=== PATIENT | male | born 1960 | race Caucasian/White ===

== ENCOUNTER 2021-09-15 17:04 | Emergency (ER) | payer BC, OTHER ==
[~2021-09-15] VITALS: Ht 172.7 cm; Wt 108.0 kg
[2021-09-15] MEDS ORDERED: ONDANSETRON HCL INJ 2MG/ML 2ML 2 MG/ML VIAL IV PRN (17:30)
[2021-09-15] MEDS ORDERED: Morphine 4mg Syringe 4 MG/ML INJ IV PRN (17:30)
[2021-09-15 18:07] LABS: BASOPHILS # (AUTO) 0.1 (0.0-0.1); BASOPHILS % 0.8 % (0.0-1.0); EOSINOPHILS # (AUTO) 0.2 (0.0-0.4); EOSINOPHILS % 2.7 % (0.0-6.0); HEMATOCRIT 43.5 % (38.2-49.6); HEMOGLOBIN 14.7 g/dL (14.0-18.0); LYMPHOCYTES # (AUTO) 2.2 (1.0-3.2); LYMPHOCYTES % 24.6 % (18.0-39.1); MEAN CORPUSCULAR HEMOGLOBIN 29.4 pg (28-32); MEAN CORPUSCULAR HGB CONC 33.8 g/dL (31-35); MONOCYTES # (AUTO) 0.9 (0.2-0.8); MONOCYTES % 10.6 % (4.4-11.3); NEUTROPHILS # (AUTO) 5.3 (2.1-6.9); NEUTROPHILS % 59.3 % (38.7-80.0); PLATELET COUNT 421 x10e3/uL (140-360); RED CELL DISTRIBUTION WIDTH 12.5 % (11.7-14.4)
[2021-09-15 18:23] LABS: ALBUMIN 3.5 g/dL (3.5-5.0); ALBUMIN/GLOBULIN RATIO 0.9 (0.8-2.0); ANION GAP 16.7 mmol/L (8-16); CALCIUM 9.2 mg/dL (8.4-10.2); CREATININE, SERUM 1.05 mg/dL (0.72-1.25); POTASSIUM 3.7 mmol/L (3.5-5.1)
[2021-09-15 19:04] VITALS: BP 134/84
[2021-09-15 19:07] LABS: CLARITY,URINE SL CLOUDY (CLEAR); COLOR,URINE YELLOW (YELLOW)
[2021-09-15 19:08] LABS: KETONES,URINE NEGATIVE (NEGATIVE); LEUKOCYTE ESTERASE ,URINE TRACE (NEGATIVE); NITRITE,URINE NEGATIVE (NEGATIVE); PROTEIN,URINE DIPSTICK 2+ (NEGATIVE); URINE UROBILINOGEN 0.2 mg/dL (0.2 - 1)
[2021-09-15 19:18] LABS: BACTERIA,URINE MODERATE /HPF
== END 2021-09-15 19:05 | disposition home or self-care (01) ==
LOC: ER 17:25
DX: R10.32 Left lower quadrant pain (principal); N20.0 Calculus of kidney; N12 Tubulo-interstitial nephritis, not specified as acute or chronic; E11.65 Type 2 diabetes mellitus with hyperglycemia; I10 Essential (primary) hypertension; E78.5 Hyperlipidemia, unspecified; E03.9 Hypothyroidism, unspecified; K21.9 Gastro-esophageal reflux disease without esophagitis; Z86.73 Personal history of transient ischemic attack (TIA), and cerebral infarction without residual deficits
CPT/HCPCS: 36415; 80053; 81001; 85025; 87040; 87086; 87186; 99284; J2543

== ENCOUNTER 2022-07-20 14:42 | Emergency (ER) | payer BC ==
[~2022-07-20] VITALS: Ht 172.7 cm; Wt 108.0 kg
[2022-07-20] MEDS ORDERED: ASPIRIN 81 MG CHEW TAB PO ONE (14:45)
[2022-07-20] MEDS: LABETALOL HCL 5 MG/ML 20ML VIAL IV STA ×2 (15:06→15:20)
[2022-07-20 15:11] LABS: BASOPHILS # (AUTO) 0.1 (0.0-0.1); BASOPHILS % 0.6 % (0.0-1.0); EOSINOPHILS # (AUTO) 0.3 (0.0-0.4); EOSINOPHILS % 3.3 % (0.0-6.0); HEMATOCRIT 42.9 % (38.2-49.6); HEMOGLOBIN 14.6 g/dL (14.0-18.0); LYMPHOCYTES # (AUTO) 2.2 (1.0-3.2); LYMPHOCYTES % 21.5 % (18.0-39.1); MEAN CORPUSCULAR VOLUME 88.1 fL (81-99); MONOCYTES # (AUTO) 0.9 (0.2-0.8); MONOCYTES % 8.7 % (4.4-11.3); NEUTROPHILS # (AUTO) 6.8 (2.1-6.9); NEUTROPHILS % 65.2 % (38.7-80.0); PLATELET COUNT 312 x10e3/uL (140-360); RED BLOOD COUNT 4.87 x10e6/uL (4.3-5.7); RED CELL DISTRIBUTION WIDTH 12.3 % (11.7-14.4)
[2022-07-20 15:26] LABS: INR 0.91; PROTHROMBIN TIME 12.8 seconds (11.9-14.5)
[2022-07-20 15:28] LABS: ALANINE AMINOTRANSFERASE 57 IU/L (0-55); ALBUMIN 3.8 g/dL (3.5-5.0); ALBUMIN/GLOBULIN RATIO 1.1 (0.8-2.0); ALKALINE PHOSPHATASE 69 IU/L (40-150); ANION GAP 15.5 mmol/L (8-16); BLOOD UREA NITROGEN 19 mg/dL (7-26); BUN/CREATININE RATIO 19 (6-25); CALCIUM 9.2 mg/dL (8.4-10.2); CARBON DIOXIDE 27 mmol/L (22-29); CHLORIDE 98 mmol/L (98-107); CREATINE KINASE 320 IU/L (30-200); CREATININE, SERUM 0.98 mg/dL (0.72-1.25); GLUCOSE 243 mg/dL (74-118); POTASSIUM 4.5 mmol/L (3.5-5.1); SODIUM 136 mmol/L (136-145)
[2022-07-20] MEDS ORDERED: CLONIDINE HCL0.1 MG PO (16:31)
[2022-07-20 16:58] VITALS: BP 138/83
== END 2022-07-20 17:00 | disposition home or self-care (01) ==
LOC: ER 14:54
DX: I16.0 Hypertensive urgency (principal); H53.8 Other visual disturbances; E11.65 Type 2 diabetes mellitus with hyperglycemia; I10 Essential (primary) hypertension; E78.5 Hyperlipidemia, unspecified; E03.9 Hypothyroidism, unspecified; K21.9 Gastro-esophageal reflux disease without esophagitis; Z86.73 Personal history of transient ischemic attack (TIA), and cerebral infarction without residual deficits
CPT/HCPCS: 36415; 70450; 71045; 80053; 82550; 82553; 84484; 85025; 85610; 85730; 93005; 99284; J3490

== ENCOUNTER 2024-07-01 18:59 | Emergency (ER) | payer BC ==
[~2024-07-01 18:59] MED LIST: CLONIDINE HCL0.1 MG PO
[2024-07-01] MEDS ORDERED: PRAVASTATIN SOD40 MG PO (22:03)
[2024-07-01] MEDS ORDERED: PIOGLITAZONE HC30 MG PO (22:03)
[2024-07-01] MEDS ORDERED: OLMESARTAN MEDO40 MG PO (22:03)
[2024-07-01] MEDS ORDERED: LEVOTHYROXINE50 MCG PO (22:03)
[2024-07-01] MEDS ORDERED: AMLODIPINE BESYL5 MG PO (22:04)
[2024-07-02] MEDS ORDERED: LINZESS290 MCG (10:19)
== END 2024-07-01 19:20 | disposition short-term general hospital (02) ==
LOC: ER 19:06
DX: I10 Essential (primary) hypertension (principal)

== ENCOUNTER 2024-07-01 19:27 | Inpatient (IN) | payer BC ==
[~2024-07-01] VITALS: Ht 172.7 cm; Wt 108.9 kg
[~2024-07-01 19:27] MED LIST changes: +SEVOFLURANE INHAL SOLN 250 ML PEN BTL ONE
[2024-07-01 20:57] VITALS: BP 119/69; PULSE 86; RESP 18; TEMP 97.9; O2SAT 97
[2024-07-01 21:06] LABS: BASOPHILS % 0.3 % (0.0-1.0); EOSINOPHILS # (AUTO) 0.1 (0.0-0.4); EOSINOPHILS % 0.8 % (0.0-6.0); HEMATOCRIT 42.2 % (38.2-49.6); HEMOGLOBIN 14.3 g/dL (14.0-18.0); LYMPHOCYTES # (AUTO) 1.6 (1.0-3.2); MEAN CORPUSCULAR HEMOGLOBIN 29.5 pg (28-32); MEAN CORPUSCULAR HGB CONC 33.9 g/dL (31-35); MONOCYTES # (AUTO) 1.5 (0.2-0.8); MONOCYTES % 12.8 % (4.4-11.3); NEUTROPHILS # (AUTO) 8.7 (2.1-6.9); NEUTROPHILS % 72.4 % (38.7-80.0); PLATELET COUNT 305 x10e3/uL (140-360); RED BLOOD COUNT 4.85 x10e6/uL (4.3-5.7); RED CELL DISTRIBUTION WIDTH 13.5 % (11.7-14.4); WHITE BLOOD COUNT 11.95 x10e3/uL (4.8-10.8)
[2024-07-01 21:18] LABS: CREATININE, SERUM 2.93 mg/dL (0.72-1.25)
[2024-07-01] MEDS: SODIUM CHLORIDE 0.9% 1000ML 1,000 ML IV SCH (21:18)
[2024-07-01 21:23] LABS: BILIRUBIN,URINE NEGATIVE (NEGATIVE); CLARITY,URINE CLEAR (CLEAR); COLOR,URINE YELLOW (YELLOW); GLUCOSE, URINE NEGATIVE (NEGATIVE); KETONES,URINE NEGATIVE (NEGATIVE); LEUKOCYTE ESTERASE ,URINE NEGATIVE (NEGATIVE); NITRITE,URINE NEGATIVE (NEGATIVE); PH,URINE 5.5 (5 - 7); PROTEIN,URINE DIPSTICK 2+ (NEGATIVE); URINE UROBILINOGEN 0.2 mg/dL (0.2 - 1)
[2024-07-01 21:31] VITALS: BP 119/69; PULSE 86; RESP 18; TEMP 97.9; O2SAT 97
[2024-07-01 21:45] VITALS: BP 119/69; PULSE 86; RESP 18; TEMP 97.9; O2SAT 97
[2024-07-01 21:55] LABS: RBC,URINE 0-5 /HPF (0-5)
[2024-07-01 21:56] LABS: BACTERIA,URINE MANY /HPF; EPITHELIAL CELLS,URINE FEW /LPF
[2024-07-01] MEDS ORDERED: OLMESARTAN MEDO40 MG PO (22:03)
[2024-07-01] MEDS ORDERED: PRAVASTATIN SOD40 MG PO (22:03)
[2024-07-01] MEDS ORDERED: LEVOTHYROXINE50 MCG PO (22:03)
[2024-07-01] MEDS ORDERED: PIOGLITAZONE HC30 MG PO (22:03)
[2024-07-01] MEDS ORDERED: AMLODIPINE BESYL5 MG PO (22:04)
[2024-07-02] VITALS (8 sets, daily range): BP systolic 107–132; BP diastolic 69–80; PULSE 83–91; RESP 16–22; TEMP 97.8–99; O2SAT 94–100
[2024-07-02] MEDS: Morphine 2mg Syringe 2 MG/ML SYR IV PRN (02:25)
[2024-07-02 05:57] LABS: BASOPHILS % 0.3 % (0.0-1.0); EOSINOPHILS # (AUTO) 0.1 (0.0-0.4); EOSINOPHILS % 0.5 % (0.0-6.0); HEMATOCRIT 33.9 % (38.2-49.6); HEMOGLOBIN 11.7 g/dL (14.0-18.0); LYMPHOCYTES # (AUTO) 1.1 (1.0-3.2); LYMPHOCYTES % 9.9 % (18.0-39.1); MEAN CORPUSCULAR HEMOGLOBIN 29.4 pg (28-32); MEAN CORPUSCULAR HGB CONC 34.5 g/dL (31-35); MEAN CORPUSCULAR VOLUME 85.2 fL (81-99); MONOCYTES # (AUTO) 1.5 (0.2-0.8); MONOCYTES % 13.9 % (4.4-11.3); NEUTROPHILS # (AUTO) 8.2 (2.1-6.9); NEUTROPHILS % 73.9 % (38.7-80.0); PLATELET COUNT 236 x10e3/uL (140-360); RED BLOOD COUNT 3.98 x10e6/uL (4.3-5.7); RED CELL DISTRIBUTION WIDTH 13.4 % (11.7-14.4); WHITE BLOOD COUNT 11.03 x10e3/uL (4.8-10.8)
[2024-07-02 06:27] LABS: ANION GAP 16.8 mmol/L (8-16); CALCIUM 7.9 mg/dL (8.4-10.2); CREATININE, SERUM 2.51 mg/dL (0.72-1.25); POTASSIUM 3.8 mmol/L (3.5-5.1)
[2024-07-02] MEDS ORDERED: LINZESS290 MCG (10:19)
[2024-07-02] MEDS ORDERED: TRANEXAMIC ACID 1,000 MG/10 ML ML ONE (12:11)
[2024-07-02] MEDS ORDERED: DEXTROSE 50% SYRINGE 50 ML IV PRN (18:45)
[2024-07-02] MEDS: PRAVASTATIN 20 MG TAB PO SCH (20:14)
[2024-07-02] MEDS: INSULIN LISPRO 100 UNIT/1 ML 3ML VIAL SQ SCH (21:00)
[2024-07-03] VITALS (9 sets, daily range): BP systolic 109–133; BP diastolic 66–79; PULSE 77–88; RESP 17–21; TEMP 97.5–100.6; O2SAT 95–100
[2024-07-03] MEDS: LEVOTHYROXINE SODIUM 50 MCG TAB PO SCH (05:09)
[2024-07-03 06:05] LABS: BASOPHILS % 0.2 % (0.0-1.0); EOSINOPHILS # (AUTO) 0.1 (0.0-0.4); EOSINOPHILS % 0.6 % (0.0-6.0); HEMATOCRIT 30.6 % (38.2-49.6); HEMOGLOBIN 10.6 g/dL (14.0-18.0); LYMPHOCYTES # (AUTO) 1.3 (1.0-3.2); LYMPHOCYTES % 13.1 % (18.0-39.1); MEAN CORPUSCULAR HEMOGLOBIN 29.7 pg (28-32); MEAN CORPUSCULAR HGB CONC 34.6 g/dL (31-35); MEAN CORPUSCULAR VOLUME 85.7 fL (81-99); MONOCYTES # (AUTO) 1.6 (0.2-0.8); MONOCYTES % 15.7 % (4.4-11.3); NEUTROPHILS # (AUTO) 6.8 (2.1-6.9); NEUTROPHILS % 67.7 % (38.7-80.0); PLATELET COUNT 236 x10e3/uL (140-360); RED BLOOD COUNT 3.57 x10e6/uL (4.3-5.7); RED CELL DISTRIBUTION WIDTH 13.7 % (11.7-14.4); WHITE BLOOD COUNT 10.05 x10e3/uL (4.8-10.8)
[2024-07-03 06:34] LABS: ANION GAP 13.1 mmol/L (8-16); CALCIUM 7.5 mg/dL (8.4-10.2); CREATININE, SERUM 2.42 mg/dL (0.72-1.25); POTASSIUM 4.1 mmol/L (3.5-5.1)
[2024-07-03] MEDS: AMLODIPINE BESYLATE 5 MG TAB PO SCH (09:00)
[2024-07-03] MEDS ORDERED: LIDOCAINE HCL 2% LOCAL INJ 5 ML SDV VIAL INJ ONE (16:51)
[2024-07-03] MEDS ORDERED: FENTANYL CITRATE/PF 100MCG/2 ML INJ ONE (16:51)
[2024-07-03] MEDS ORDERED: PROPOFOL IV EMULSION 10 MG/ML 20 ML VIAL ONE (16:53)
[2024-07-03] MEDS ORDERED: PHENAZOPYRIDINE HCL 100 MG TAB PO PRN (18:15)
[2024-07-03] MEDS ORDERED: ACETAMINOPHEN/CODEINE 300MG - 30MG TAB PO PRN (18:15)
[2024-07-04] VITALS (7 sets, daily range): BP systolic 109–130; BP diastolic 76–92; PULSE 72–88; RESP 18–21; TEMP 95.7–97.9; O2SAT 97–100
[2024-07-04] MEDS: CITRATE OF MAGNESIA 300ML BOTTLE PO STA (05:55)
[2024-07-04 05:57] LABS: BASOPHILS % 0.2 % (0.0-1.0); HEMATOCRIT 33.2 % (38.2-49.6); HEMOGLOBIN 11.1 g/dL (14.0-18.0); LYMPHOCYTES # (AUTO) 0.7 (1.0-3.2); LYMPHOCYTES % 7.7 % (18.0-39.1); MEAN CORPUSCULAR HEMOGLOBIN 29.2 pg (28-32); MEAN CORPUSCULAR HGB CONC 33.4 g/dL (31-35); MEAN CORPUSCULAR VOLUME 87.4 fL (81-99); MONOCYTES # (AUTO) 0.5 (0.2-0.8); MONOCYTES % 5.6 % (4.4-11.3); NEUTROPHILS # (AUTO) 7.5 (2.1-6.9); NEUTROPHILS % 82.6 % (38.7-80.0); PLATELET COUNT 320 x10e3/uL (140-360); RED CELL DISTRIBUTION WIDTH 14.2 % (11.7-14.4); WHITE BLOOD COUNT 9.05 x10e3/uL (4.8-10.8)
[2024-07-04 06:29] LABS: ANION GAP 13.8 mmol/L (8-16); CALCIUM 7.7 mg/dL (8.4-10.2); CREATININE, SERUM 1.64 mg/dL (0.72-1.25); POTASSIUM 4.8 mmol/L (3.5-5.1)
[2024-07-04] MEDS: CITRATE OF MAGNESIA 300ML BOTTLE ONE ×2 (09:02)
[2024-07-04] MEDS: SOLIFENACIN SUCCINATE 5 MG TAB PO SCH (09:07)
[2024-07-04] MEDS: INSULIN GLARGINE 100 UNITS/ML VIAL SQ SCH (20:38)
[2024-07-05] VITALS: BP 136/85; PULSE 72; RESP 18; TEMP 97.2; O2SAT 100
[2024-07-05 05:28] VITALS: BP 138/85; PULSE 74; RESP 18; TEMP 97.3; O2SAT 98
[2024-07-05 07:03] LABS: ANION GAP 12.9 mmol/L (8-16); CALCIUM 7.9 mg/dL (8.4-10.2); CREATININE, SERUM 1.27 mg/dL (0.72-1.25); POTASSIUM 4.9 mmol/L (3.5-5.1)
[2024-07-05 07:13] LABS: CALCIUM 7.3 mg/dL (8.6-10.2)
[2024-07-05 08:30] VITALS: BP 142/87; PULSE 70; RESP 19; TEMP 97.5; O2SAT 100
[2024-07-05 09:38] VITALS: BP 142/87; PULSE 70; RESP 19; TEMP 97.5; O2SAT 100
[2024-07-05] MEDS ORDERED: PROPOFOL IV EMULSION 10 MG/ML 20 ML VIAL ONE (12:10)
[2024-07-05] MEDS ORDERED: LIDOCAINE HCL 2% LOCAL INJ 5 ML SDV VIAL INJ ONE (12:10)
[2024-07-05] MEDS ORDERED: FENTANYL CITRATE/PF 100MCG/2 ML INJ ONE (12:14)
[2024-07-05] MEDS ORDERED: EPHEDRINE SULFATE INJ 50 MG/ML VIAL ONE (12:25)
[2024-07-05] MEDS ORDERED: ACETAMINOPHEN 1000 MG/100 ML 100 ML IV ONE (12:30)
[2024-07-05] MEDS ORDERED: SEVOFLURANE INHAL SOLN 250 ML PEN BTL ONE (12:30)
[2024-07-05] MEDS ORDERED: FAMOTIDINE 20 MG/2 ML VIAL IV ONE (12:35)
[2024-07-05] MEDS ORDERED: ONDANSETRON HCL INJ 2MG/ML 2ML 2 MG/ML VIAL ONE (12:35)
[2024-07-05 13:29] VITALS: BP 125/85; PULSE 69; RESP 20; TEMP 97.9; O2SAT 98
[2024-07-05 16:32] VITALS: BP 139/99; PULSE 73; RESP 20; TEMP 97.8; O2SAT 98
== END 2024-07-05 19:28 | disposition home or self-care (01) | DRG 660 ==
LOC: MED/SURG2 19:27
PROVIDERS: ADMIT Family Medicine; ATTEND Family Medicine
PROC: BT141ZZ Fluoroscopy of Kidneys, Ureters and Bladder using Low Osmolar Contrast (ICD-10-PCS; 2024-07-03)
PROC: 0T778DZ Dilation of Left Ureter with Intraluminal Device, Via Natural or Artificial Opening Endoscopic (ICD-10-PCS; principal; 2024-07-03 17:48)
PROC: 0TF4XZZ Fragmentation in Left Kidney Pelvis, External Approach (ICD-10-PCS; 2024-07-05)
DX: N13.2 Hydronephrosis with renal and ureteral calculous obstruction (principal); E87.1 Hypo-osmolality and hyponatremia; N17.9 Acute kidney failure, unspecified; I12.9 Hypertensive chronic kidney disease with stage 1 through stage 4 chronic kidney disease, or unspecified chronic kidney disease; E11.22 Type 2 diabetes mellitus with diabetic chronic kidney disease; N18.9 Chronic kidney disease, unspecified; E78.00 Pure hypercholesterolemia, unspecified; E03.9 Hypothyroidism, unspecified; D64.9 Anemia, unspecified; R31.9 Hematuria, unspecified; E66.01 Morbid (severe) obesity due to excess calories; Z68.36 Body mass index [BMI] 36.0-36.9, adult; Z87.440 Personal history of urinary (tract) infections
CPT/HCPCS: 36415; 50590; 74018; 74420; 80048; 81001; 82948; 83970; 84550; 85025; 87086; 93005; C1758; C1769; C2617; J0696; J2003; J2270; J2405; J7030

== ENCOUNTER → 2024-08-28 | Day surgery (SDC) | payer BC ==
[2024-08-22 16:02] LABS: BASOPHILS % 0.4 % (0.0-1.0); EOSINOPHILS # (AUTO) 0.3 (0.0-0.4); HEMATOCRIT 33.9 % (38.2-49.6); HEMOGLOBIN 11.5 g/dL (14.0-18.0); LYMPHOCYTES # (AUTO) 1.6 (1.0-3.2); LYMPHOCYTES % 22.1 % (18.0-39.1); MEAN CORPUSCULAR HEMOGLOBIN 29.3 pg (28-32); MEAN CORPUSCULAR HGB CONC 33.9 g/dL (31-35); MEAN CORPUSCULAR VOLUME 86.5 fL (81-99); MONOCYTES # (AUTO) 0.9 (0.2-0.8); MONOCYTES % 12.2 % (4.4-11.3); NEUTROPHILS # (AUTO) 4.5 (2.1-6.9); PLATELET COUNT 263 x10e3/uL (140-360); RED BLOOD COUNT 3.92 x10e6/uL (4.3-5.7); RED CELL DISTRIBUTION WIDTH 14.3 % (11.7-14.4); WHITE BLOOD COUNT 7.32 x10e3/uL (4.8-10.8)
[2024-08-22 16:27] LABS: ANION GAP 17.8 mmol/L (8-16); CALCIUM 8.9 mg/dL (8.4-10.2); CREATININE, SERUM 1.3 mg/dL (0.72-1.25); POTASSIUM 3.8 mmol/L (3.5-5.1); URIC ACID 7.5 mg/dL (4.8-8.0)
[~2024-08-28] MED LIST changes: +ACETAMINOPHEN 1000 MG/100 ML 100 ML IV ONE; +AMLODIPINE BESYL5 MG PO; +DEXAMETHASONE SOD PHOS INJ 4 MG/ML SDV ONE; +EPHEDRINE SULFATE INJ 50 MG/ML VIAL ONE; +FENTANYL CITRATE/PF 100MCG/2 ML INJ ONE; +HUMALOG MI100 UNIT/2 SQ; +LEVOTHYROXINE50 MCG PO; +LIDOCAINE HCL 2% LOCAL INJ 5 ML SDV VIAL INJ ONE; +LINZESS290 MCG; +OLMESARTAN MEDO40 MG PO; +ONDANSETRON HCL INJ 2MG/ML 2ML 2 MG/ML VIAL ONE; +PIOGLITAZONE HC30 MG PO; +PRAVASTATIN SOD40 MG PO; +PROPOFOL IV EMULSION 10 MG/ML 20 ML VIAL ONE
[2024-08-28] MEDS: SODIUM CHLORIDE 0.9% 1000ML 1,000 ML ONE (06:31)
[2024-08-28] MEDS: CEFTRIAXONE 1 GM VIAL ONE (06:32)
[2024-08-28] MEDS: GENTAMICIN 80MG/NS 100 ML 200 ML IV ONE (06:32)
[2024-08-28 11:51] VITALS: TEMP 98.6
[2024-08-28] MEDS: PHENAZOPYRIDINE HCL 100 MG TAB ONE (12:15)
[2024-08-28 12:50] VITALS: BP 135/82; PULSE 76; RESP 18; O2SAT 99
== END | disposition home or self-care (01) ==
LOC: OR 05:50
PROVIDERS: ATTEND Urology
DX: N20.0 Calculus of kidney (principal); Z46.6 Encounter for fitting and adjustment of urinary device; N40.0 Benign prostatic hyperplasia without lower urinary tract symptoms; N39.0 Urinary tract infection, site not specified; R80.9 Proteinuria, unspecified; N40.1 Benign prostatic hyperplasia with lower urinary tract symptoms; R35.1 Nocturia; E11.9 Type 2 diabetes mellitus without complications; I10 Essential (primary) hypertension; E78.5 Hyperlipidemia, unspecified; E03.9 Hypothyroidism, unspecified; Z01.812 Encounter for preprocedural laboratory examination; Z01.818 Encounter for other preprocedural examination; Z79.4 Long term (current) use of insulin; Z79.84 Long term (current) use of oral hypoglycemic drugs; Z79.899 Other long term (current) drug therapy; Z68.36 Body mass index [BMI] 36.0-36.9, adult; Z86.73 Personal history of transient ischemic attack (TIA), and cerebral infarction without residual deficits
CPT/HCPCS: 36415 ×2; 52356; 74018; 74420; 80048; 82948; 84550; 85025; 87086; C1769; C2617; J0131; J0696; J1100; J1580; J2003; J2405; J2704; J3010; J7030

== ENCOUNTER → 2024-10-18 | Day surgery (SDC) | payer BC ==
[2024-10-14 13:51] LABS: BASOPHILS % 0.6 % (0.0-1.0); EOSINOPHILS % 4.0 % (0.0-6.0); LYMPHOCYTES % 24.3 % (18.0-39.1); MONOCYTES % 9.9 % (4.4-11.3); NEUTROPHILS % 60.8 % (38.7-80.0); RED CELL DISTRIBUTION WIDTH 14.0 % (11.7-14.4)
[2024-10-14 14:19] LABS: EST GLOMERULAR FILTRATION RATE 56.0 ML/MIN (>=60)
[~2024-10-18] MED LIST changes: -DEXAMETHASONE SOD PHOS INJ 4 MG/ML SDV ONE; -EPHEDRINE SULFATE INJ 50 MG/ML VIAL ONE; +FAMOTIDINE 20 MG/2 ML VIAL IV ONE; +MIDAZOLAM HCL 2 MG/2 ML VIAL ONE; +PHENYLEPHRINE HCL 1% 10 MG/ML VIAL ONE
[2024-10-18] MEDS: GENTAMICIN 80MG/NS 100 ML 200 ML IV ONE (06:11)
[2024-10-18] MEDS: CEFTRIAXONE 1 GM VIAL ONE (06:11)
[2024-10-18] MEDS: LACTATED RINGER'S 1,000 ML ONE (06:12)
[2024-10-18 07:54] VITALS: TEMP 97.4
[2024-10-18] MEDS: PHENAZOPYRIDINE HCL 100 MG TAB ONE ×2 (08:30)
[2024-10-18 09:15] VITALS: BP 160/93; PULSE 63; RESP 16; O2SAT 98
== END | disposition home or self-care (01) ==
LOC: OR 05:11
PROVIDERS: ATTEND Urology
DX: N20.0 Calculus of kidney (principal); Z46.6 Encounter for fitting and adjustment of urinary device; N40.1 Benign prostatic hyperplasia with lower urinary tract symptoms; N13.8 Other obstructive and reflux uropathy; N39.0 Urinary tract infection, site not specified; R31.29 Other microscopic hematuria; R35.1 Nocturia; R80.9 Proteinuria, unspecified; I10 Essential (primary) hypertension; E78.5 Hyperlipidemia, unspecified; E03.9 Hypothyroidism, unspecified; E11.9 Type 2 diabetes mellitus without complications; Z79.4 Long term (current) use of insulin; K21.9 Gastro-esophageal reflux disease without esophagitis; E66.01 Morbid (severe) obesity due to excess calories; Z68.36 Body mass index [BMI] 36.0-36.9, adult; Z79.899 Other long term (current) drug therapy
CPT/HCPCS: 36415 ×2; 52352; 74018; 74420; 80048; 82948; 84550; 85025; 88300; 93005; C1766; J0131; J0696; J1308; J1580; J2003; J2250; J2371; J2405; J2704; J3010; J7121